=== PATIENT | male | born 1945 | race Caucasian/White ===

== ENCOUNTER 2021-01-01 11:22 | Inpatient (IN) ==
[2021-01-01] MEDS ORDERED: ONDANSETRON 4 MG/2 ML VIAL IV PRN (14:53)
[2021-01-01] MEDS ORDERED: DEXTROSE 50% 25 GM/50 ML VIAL IV PRN (14:53)
[2021-01-01] MEDS ORDERED: GLUCAGON 1 MG VIAL IM PRN (14:53)
[2021-01-01 15:37] LABS: Basophils # 0.1 10*3/uL (0.0-0.2); Basophils % 0.5 % (0.0-0.8); Eosinophils # 0.1 10*3/uL (0.0-0.87); Eosinophils % 0.8 % (0.00-10.9); Hemoglobin 14.2 GM/DL (14.0-18.0); Immature Granulocytes % 0.6 %; Immature Granulocytes Absolute 0.07 #; Lymphocytes # 1.4 10*3/uL (1.4-4.0); Lymphocytes % 12.3 % (21.2-54.2); Mean Corpuscular HGB Conc 32.3 GM/DL (32-36); Mean Corpuscular Volume 97.3 FL (87-102); Mean Platelet Volume 9.1 FL (9.6-12.0); Monocytes % 4.9 % (1.7-12.7); Neutrophils % 80.9 % (38.7-73.9); Platelet Count 327 T/CUMM (130-400); Red Blood Count 4.52 MC/CUMM (3.8-5.5); Red Cell Distribution Width 12.6 % (9.3-17.3)
[2021-01-01] MEDS: SODIUM CHLORIDE 0.9% 1,000 ML IV SCH (16:01)
[2021-01-01 16:09] LABS: Albumin 2.8 G/DL (3.4-5.0); Calcium 7.8 MG/DL (8.5-10.1); Osmolality,Calculated 305.3 MOS/KG (273-304); Potassium 4.3 MMOL/L (3.5-5.1)
[2021-01-01 17:41] LABS: Bilirubin,Urine Negative (Negative); Blood, Urine Small mg/dL (Negative); Glucose,Urine (UA) Negative (Negative); Ketones,Urine Negative (Negative); Mucus,Urine Occasional /LPF (Occasional); Nitrite,Urine Negative (Negative); Protein,Urine Negative; RBC,Urine 2 /HPF (0-4); Squamous Epithelial Cell,Urine Occasional /HPF (0-10); Urine Appearance CLEAR (Clear); Urine Color Colorless (Yellow); Urine Specific Gravity 1.005 (1.001-1.035); Urine Urobilinogen < 2.0 EU/DL (0.2-1.0); WBC,Urine 26 /HPF (0-6)
[2021-01-01] MEDS: ACETAMINOPHEN 325 MG TABLET PO PRN (21:26)
[2021-01-01] MEDS: ZALEPLON 5 MG CAPSULE PO PRN (21:26)
[2021-01-01] MEDS: APIXABAN 5 MG TABLET PO SCH (21:26)
[2021-01-02] MEDS: SODIUM CHLORIDE 0.9% 1,000 ML IV SCH (04:10)
[2021-01-02 06:02] LABS: Basophils # 0.1 10*3/uL (0.0-0.2); Basophils % 0.8 % (0.0-0.8); Eosinophils # 0.4 10*3/uL (0.0-0.87); Eosinophils % 3.6 % (0.00-10.9); Hematocrit 40.4 VOL% (42.0-52.0); Hemoglobin 13.2 GM/DL (14.0-18.0); Immature Granulocytes % 0.4 %; Immature Granulocytes Absolute 0.04 #; Lymphocytes # 2.5 10*3/uL (1.4-4.0); Lymphocytes % 22.5 % (21.2-54.2); Mean Corpuscular HGB Conc 32.7 GM/DL (32-36); Mean Corpuscular Volume 96.7 FL (87-102); Mean Platelet Volume 9.3 FL (9.6-12.0); Monocytes % 8.9 % (1.7-12.7); Neutrophils % 63.8 % (38.7-73.9); Platelet Count 286 T/CUMM (130-400); Red Blood Count 4.18 MC/CUMM (3.8-5.5); Red Cell Distribution Width 12.7 % (9.3-17.3); White Blood Count 11.1 T/CUMM (4-12)
[2021-01-02 06:25] LABS: Albumin 2.8 G/DL (3.4-5.0); Osmolality,Calculated 301.3 MOS/KG (273-304)
[2021-01-02] MEDS: DUTASTERIDE 0.5 MG CAPSULE PO SCH ×2 (07:47→08:31)
[2021-01-02] MEDS: APIXABAN 5 MG TABLET PO SCH ×2 (07:47→08:32)
[2021-01-02] MEDS: ASPIRIN EC 81 MG TABLET PO SCH ×2 (07:47→08:31)
[2021-01-02] MEDS: PANTOPRAZOLE 40 MG TABLET PO SCH ×2 (07:47→08:32)
[2021-01-02] MEDS ORDERED: SODIUM BICARB INJ 100 MEQ in STERILE WATER INJ 400 ML IV ONE (09:00)
[2021-01-02] MEDS: sitaGLIPtin 25 MG TABLET PO SCH (09:28)
[2021-01-02] MEDS: cefTRIAXone 1,000 MG in SODIUM CHLORIDE 0.9% 100 ML IV SCH (09:29)
[2021-01-02] MEDS ORDERED: SODIUM BICARB INJ 100 MEQ in STERILE WATER INJ 400 ML IV SCH (18:30)
[2021-01-02] MEDS: SODIUM BICARB INJ 150 MEQ in STERILE WATER INJ 1,000 ML IV SCH (21:46)
[2021-01-02] MEDS: ZALEPLON 5 MG CAPSULE PO PRN (21:46)
[2021-01-02] MEDS: ENOXAPARIN 30 MG/0.3 ML SYRINGE SUBCUT SCH (21:46)
[2021-01-02] MEDS: ACETAMINOPHEN 325 MG TABLET PO PRN (21:46)
[2021-01-03 05:44] LABS: Basophils # 0.1 10*3/uL (0.0-0.2); Basophils % 0.6 % (0.0-0.8); Eosinophils # 0.1 10*3/uL (0.0-0.87); Eosinophils % 0.7 % (0.00-10.9); Hemoglobin 13.6 GM/DL (14.0-18.0); Immature Granulocytes % 0.6 %; Lymphocytes # 1.9 10*3/uL (1.4-4.0); Lymphocytes % 11.6 % (21.2-54.2); Mean Corpuscular Volume 92.8 FL (87-102); Mean Platelet Volume 9.4 FL (9.6-12.0); Monocytes % 7.6 % (1.7-12.7); Neutrophils % 78.9 % (38.7-73.9); Platelet Count 330 T/CUMM (130-400); Red Blood Count 4.31 MC/CUMM (3.8-5.5); Red Cell Distribution Width 12.3 % (9.3-17.3); White Blood Count 16.2 T/CUMM (4-12)
[2021-01-03 06:05] LABS: Calcium 8.5 MG/DL (8.5-10.1)
[2021-01-03] MEDS: PANTOPRAZOLE 40 MG TABLET PO SCH (09:31)
[2021-01-03] MEDS: sitaGLIPtin 25 MG TABLET PO SCH (09:32)
[2021-01-03] MEDS: DUTASTERIDE 0.5 MG CAPSULE PO SCH (09:32)
[2021-01-03] MEDS: cefTRIAXone 1,000 MG in SODIUM CHLORIDE 0.9% 100 ML IV SCH (09:32)
[2021-01-03] MEDS: ASPIRIN EC 81 MG TABLET PO SCH (09:32)
[2021-01-03] MEDS: SODIUM BICARBONATE 650 MG TABLET PO SCH ×2 (09:32→21:45)
[2021-01-03] MEDS: TAMSULOSIN 0.4 MG CAPSULE PO SCH (17:06)
[2021-01-03] MEDS: ENOXAPARIN 30 MG/0.3 ML SYRINGE SUBCUT SCH (21:45)
[2021-01-03] MEDS: SODIUM BICARB INJ 150 MEQ in STERILE WATER INJ 1,000 ML IV SCH (21:45)
[2021-01-04 05:37] LABS: Basophils # 0.1 10*3/uL (0.0-0.2); Basophils % 0.7 % (0.0-0.8); Eosinophils # 0.4 10*3/uL (0.0-0.87); Eosinophils % 3.7 % (0.00-10.9); Hematocrit 36.6 VOL% (42.0-52.0); Hemoglobin 12.3 GM/DL (14.0-18.0); Immature Granulocytes % 0.5 %; Immature Granulocytes Absolute 0.05 #; Lymphocytes # 2.9 10*3/uL (1.4-4.0); Lymphocytes % 26.5 % (21.2-54.2); Mean Corpuscular HGB Conc 33.6 GM/DL (32-36); Mean Corpuscular Volume 94.8 FL (87-102); Mean Platelet Volume 9.5 FL (9.6-12.0); Neutrophils % 59.6 % (38.7-73.9); Platelet Count 258 T/CUMM (130-400); Red Blood Count 3.86 MC/CUMM (3.8-5.5); Red Cell Distribution Width 12.6 % (9.3-17.3); White Blood Count 10.9 T/CUMM (4-12)
[2021-01-04 06:03] LABS: Albumin 2.6 G/DL (3.4-5.0); Calcium 7.7 MG/DL (8.5-10.1); Osmolality,Calculated 296.1 MOS/KG (273-304); Potassium 3.4 MMOL/L (3.5-5.1)
[2021-01-04] MEDS ORDERED: POTASSIUM CHLORIDE 20 MEQ TABLET PO ONE (07:40)
[2021-01-04] MEDS: sitaGLIPtin 25 MG TABLET PO SCH (08:34)
[2021-01-04] MEDS: SODIUM BICARBONATE 650 MG TABLET PO SCH ×2 (08:34→21:03)
[2021-01-04] MEDS: DUTASTERIDE 0.5 MG CAPSULE PO SCH (08:34)
[2021-01-04] MEDS: TAMSULOSIN 0.4 MG CAPSULE PO SCH ×2 (08:34→21:03)
[2021-01-04] MEDS: PANTOPRAZOLE 40 MG TABLET PO SCH (08:35)
[2021-01-04] MEDS: ASPIRIN EC 81 MG TABLET PO SCH (08:35)
[2021-01-04] MEDS ORDERED: AMOXICILLIN/CLAV 500 MG TABLET PO SCH (09:00)
[2021-01-04] MEDS: SODIUM CHLORIDE 0.45% 1,000 ML IV SCH ×2 (09:48→23:32)
[2021-01-04] MEDS ORDERED: APIXABAN 2.5 MG TABLET PO SCH (21:00)
[2021-01-05 06:26] LABS: Basophils # 0.1 10*3/uL (0.0-0.2); Basophils % 0.7 % (0.0-0.8); Eosinophils # 0.5 10*3/uL (0.0-0.87); Eosinophils % 4.3 % (0.00-10.9); Hematocrit 36.6 VOL% (42.0-52.0); Hemoglobin 12.3 GM/DL (14.0-18.0); Immature Granulocytes % 0.4 %; Immature Granulocytes Absolute 0.04 #; Lymphocytes # 2.8 10*3/uL (1.4-4.0); Lymphocytes % 26.5 % (21.2-54.2); Mean Corpuscular HGB Conc 33.6 GM/DL (32-36); Mean Corpuscular Volume 93.6 FL (87-102); Mean Platelet Volume 9.4 FL (9.6-12.0); Monocytes % 9.4 % (1.7-12.7); Neutrophils % 58.7 % (38.7-73.9); Platelet Count 258 T/CUMM (130-400); Red Blood Count 3.91 MC/CUMM (3.8-5.5); Red Cell Distribution Width 12.6 % (9.3-17.3); White Blood Count 10.7 T/CUMM (4-12)
[2021-01-05 06:43] LABS: Calcium 7.4 MG/DL (8.5-10.1); Osmolality,Calculated 289.3 MOS/KG (273-304); Potassium 3.1 MMOL/L (3.5-5.1)
[2021-01-05] MEDS: INSULIN LISPRO 100 UNIT/ML SUBCUT SCH ×4 (08:28→21:02)
[2021-01-05] MEDS: ASPIRIN EC 81 MG TABLET PO SCH (08:29)
[2021-01-05] MEDS: PANTOPRAZOLE 40 MG TABLET PO SCH (08:29)
[2021-01-05] MEDS: TAMSULOSIN 0.4 MG CAPSULE PO SCH ×2 (08:29→21:00)
[2021-01-05] MEDS: SODIUM BICARBONATE 650 MG TABLET PO SCH ×2 (08:29→20:59)
[2021-01-05] MEDS: DUTASTERIDE 0.5 MG CAPSULE PO SCH (08:29)
[2021-01-05] MEDS: APIXABAN 5 MG TABLET PO SCH ×2 (08:31→21:00)
[2021-01-05] MEDS ORDERED: MAGNESIUM SULF RIDER 4 GM in PREMIX 1 EACH IV ONE (09:00)
[2021-01-05] MEDS ORDERED: POTASSIUM CHLORIDE 20 MEQ TABLET PO ONE (09:00)
[2021-01-06 05:57] LABS: Calcium 7.8 MG/DL (8.5-10.1); Osmolality,Calculated 284.4 MOS/KG (273-304)
[2021-01-06] MEDS: INSULIN LISPRO 100 UNIT/ML SUBCUT SCH ×2 (07:43→11:42)
[2021-01-06] MEDS: ASPIRIN EC 81 MG TABLET PO SCH (08:08)
[2021-01-06] MEDS: DUTASTERIDE 0.5 MG CAPSULE PO SCH (08:08)
[2021-01-06] MEDS: APIXABAN 5 MG TABLET PO SCH (08:08)
[2021-01-06] MEDS: SODIUM BICARBONATE 650 MG TABLET PO SCH (08:08)
[2021-01-06] MEDS: TAMSULOSIN 0.4 MG CAPSULE PO SCH (08:08)
[2021-01-06] MEDS: PANTOPRAZOLE 40 MG TABLET PO SCH (08:09)
[2021-01-06] MEDS ORDERED: MAGNESIUM SULF RIDER 2 GM in PREMIX 1 EACH IV PRN (09:26)
[2021-01-06] MEDS ORDERED: MAGNESIUM SULF RIDER 4 GM in PREMIX 1 EACH IV PRN (09:26)
[2021-01-06 12:27] VITALS: BP 120/66
== END 2021-01-06 13:48 | disposition home or self-care (01) | DRG 683 ==
LOC: SUATTDRO 12:53 → N.CC 12:53 → N.5E 14:21
PROVIDERS: ADMIT Internal Medicine; ATTEND Internal Medicine